=== PATIENT | male | born 1995 | race Asian ===

== ENCOUNTER → 2020-06-26 16:11 | Outpatient (CLI) | payer OTHER, SELFPAY | PROVIDERS: Referring Provider Family Medicine; Visit Provider Family Medicine | DX: Z23 Encounter for immunization (principal) | CPT/HCPCS: 0001A; 0002A; 91300 ==

== ENCOUNTER 2020-06-28 22:31 | Emergency (ER) | payer OTHER, SELFPAY ==
[2020-06-28 22:32] VITALS: BP 133/88; PULSE 75; RESP 18; TEMP 36.7; O2SAT 99; BMI 20.5
[2020-06-28] MEDS: Ibuprofen 600 MG Tablet PO (23:25)
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
[2020-06-29 00:11] VITALS: BP 120/68; PULSE 68; RESP 12; O2SAT 98
== END 2020-06-29 00:39 | disposition home or self-care (01) ==
PROVIDERS: Emergency Provider Emergency Medicine
DX: T24.131A Burn of first degree of right lower leg, initial encounter (principal); T25.111A Burn of first degree of right ankle, initial encounter; T24.132A Burn of first degree of left lower leg, initial encounter; T25.112A Burn of first degree of left ankle, initial encounter; F17.200 Nicotine dependence, unspecified, uncomplicated
CPT/HCPCS: 99283

== ENCOUNTER → 2021-02-07 | Outpatient (CLI) | payer OTHER, SELFPAY | END | disposition home or self-care (01) | PROVIDERS: Visit Provider Otolaryngology | DX: H92.10 Otorrhea, unspecified ear (principal) | CPT/HCPCS: 87070; 87075; 87077; 87186; 87205 ==